=== PATIENT | male | born 1945 | race Caucasian/White ===

== ENCOUNTER 2019-12-24 08:50 | Outpatient (CLI) | payer MEDICARE, OTHER, SELFPAY ==
[2019-12-24 09:24] VITALS: BMI 25.8
--- NOTE | 2019-12-24 09:24 | ECG_ITS ---
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 Interpretive Statements NAME OF STUDY: LEXISCAN SESTAMIBI STRESS TEST INDICATION: Dyspnea on Exertion RESULTS TO ALEJANDRA LEHMAN MD PROCEDURE: At the baseline, the EKG revealed normal sinus rhythm with a poor R wave progression. The baseline blood pressure was 137/71 mm Hg with a heart rate of 66 beats/min. Lexiscan was infused over a period of 20 seconds. A total of 0.4 milligrams of Lexiscan was infused. The stress phase was continued for a total of 5 minutes. Heart rate at the end of the stress phase was 98 with a blood pressure was not taken. The EKG at the peak infusion revealed no significant changes. Sestamibi was injected 20 seconds after the Lexiscan infusion. Blood pressure at the end of the recovery phase was 161/69 with a heart rate of 93 per minute. CONCLUSION: 1. No significant EKG changes with the LexiScan infusion 2. No LexiScan induced chest pain or cardiac arrhythmia 3. Normal blood pressure and heart rate response 4. Sestamibi/sestamibi perfusion scan pending; see separate report. Electronically Signed On 12-25-2019 8:57:48 CDT by Elba Broderick M.D. [id number]
--- NOTE | 2019-12-24 09:25 | NMCV_ITS ---
NM padmaja perf SPECT r/s* [id number] Heath Rayo Age: 74 Gender: M : 1945 Exam Date: 12/24/2019 09:25 Ordering Phys: Jeremie Mensah MD Technologist: MARCO ANTONIO Seay Exam Location: [facility] Indications: DYSPNEA ON EXERTION STRESS TEST Please see separate stress test report in [facility]any for full findings IMAGE PROTOCOL Rest/Stress 1 Lexiscan Day Radiopharmaceutical Dose (mCi) Administration Site Administered by Rest: Tc-99m 11.0 IV MARCO ANTONIO Seay Sestamibi Stress:Tc-99m 32.3 IV MARCO ANTONIO Penny Sestamibi Rest: 24-Dec-2019 60 Discovery 630 Stress: 24-Dec-2019 30 Discovery 630 0.4mg Lexiscan. Images obtained in supine and prone position. SPECT RESULTS Technical Quality: Excellent Raw Data Analysis: Normal Image Corrections: No attenuation or motion correction applied Summed Stress Score: 2 Summed Rest Score: 0 Summed Difference Score: 2 PERFUSION FINDINGS Small area of decreased density was noted in the mid inferior wall region. Significant reversibility was noted in this region. FUNCTIONAL RESULTS (calculated via Gated SPECT) Stress Image LV EF (%): 57 Stress EDV (mL):104 TID: 1.22 Stress ESV (mL):45 FUNCTIONAL FINDINGS: Segmental wall motion analysis revealing no gross wall motion abnormalities. IMPRESSIONS 1. Myocardial perfusion imaging revealing a small area of reversible defect in the mid inferior wall region, suggestive of ischemia in the distribution of the right coronary artery. Elevated transient ischemic dilatation ratio also may suggest endocardial ischemia. 2. Normal LV ejection fraction 57%. 3. LV wall motion analysis revealing no gross wall motion normalities. 4. LV volume, upper limit of normal. No similar previous studies are available for comparison. Dr Elba Broderick MD FACC (Electronically Signed) Final Date: 24 December 2019 15:51 S
--- NOTE | 2019-12-24 11:08 | SUR.PREOP ---
Patient reports no pain or discomfort prior to the start of the procedure.
[2019-12-24] MEDS: regadenoson 0.4 Mg/5 ml Syringe IVP (11:09)
[2019-12-24 11:24] VITALS: BP 163/69; PULSE 93
== END 2019-12-24 08:51 | disposition home or self-care (01) ==
LOC: CDL 08:53
PROVIDERS: PCP Family Medicine; Visit Provider Family Medicine
DX: R06.00 Dyspnea, unspecified (principal)
CPT/HCPCS: 78452; 93017; A9500; J2785

== ENCOUNTER 2020-01-23 09:39 | Outpatient (CLI) | payer MEDICARE, OTHER, SELFPAY ==
[2020-01-23 10:36] LABS: Basophils # 0.1 10^3/uL (0.0-0.1); Basophils % 1.1 %; Eosinophils # 0.3 10^3/uL (0.0-0.8); Eosinophils % 3.7 %; Hematocrit 34.2 % (42.0-52.0); Hemoglobin 9.7 g/dL (11.7-16.6); Lymphocytes % 24.5 %; Mean Corpuscular HGB Conc 28.4 g/dL (30.0-36.0); Mean Corpuscular Hemoglobin 21.7 pg (28.0-34.0); Mean Corpuscular Volume 76.5 fL (80-94); Mean Platelet Volume 8.4 fL (7.4-10.4); Monocytes # 1.1 10^3/uL (0.2-0.9); Monocytes % 13.8 %; Neutrophils # 4.67 10^3/uL (1.8-7.7); Neutrophils % 56.5 %; Nucleated Red Blood Cells % 0 %; Platelet Count 357 10^3/cmm (130-400); Red Blood Count 4.47 10^6/uL (4.1-5.3); Red Cell Distribution Width 15.8 % (12.1-15.1); White Blood Count 8.3 10^3/uL (4.0-10.0)
[2020-01-23 10:49] LABS: INR 1.01 (0.8-1.2)
[2020-01-23 11:02] LABS: Anion Gap 14.5 (5-19); Blood Urea Nitrogen 10 mg/dL (8-23); Calcium 9.4 mg/dL (8.5-10.5); Carbon Dioxide 21 mmol/L (22-29); Chloride 100 mmol/L (98-107); Glucose 102 mg/dL (65-115); Osmolality Calculated 271 mOsm/kg (285-295); Potassium 4.5 mmol/L (3.5-5.1); Sodium 131 mmol/L (136-145)
== END 2020-01-23 09:40 | disposition home or self-care (01) ==
LOC: RAD 09:48
PROVIDERS: Internal Medicine Cardiovascular Disease; PCP Family Medicine; Visit Provider Family Medicine
DX: Z01.812 Encounter for preprocedural laboratory examination (principal)
CPT/HCPCS: 80048; 85025; 85610; 87635

== ENCOUNTER 2020-01-26 07:19 | Day surgery (SDC) | payer MEDICARE, OTHER, SELFPAY ==
[2020-01-26] VITALS (11 sets, daily range): BP systolic 114–153; BP diastolic 65–86; PULSE 9–99; RESP 16–20; TEMP 36.3; O2SAT 97–100; BMI 27.1
--- NOTE | 2020-01-26 07:30 | XACV_ITS ---
Ht: 168 cm Wt: 76 kg BSA: 1.90 m2 Gender: Male : 1945 Any Known Allergies: Other Exam Priority: Routine Procedure(s): Procedure Description: Diagnostic procedure Procedure Description: Left Heart Catheterization Procedure Description: Left ventriculography Procedure Description: Coronary Angiography Diagnostic Findings * Left Main Coronary Artery: Moderate 60% stenosis, AALIYAH: 3 flow, FFR performed: ratio is 0.74. * pLAD: Moderate 50% stenosis, AALIYAH: 3 flow. * mCIRC: Moderate 50% stenosis, AALIYAH: 3 flow. * mRCA to dRCA: Moderate 50% stenosis, AALIYAH: 3 flow. * Coronary angiography shows right dominance. Conclusions 1. There is moderate coronary artery disease with four vessel disease. 2. All gudino are normal. 3. Normal left ventricular systolic function. Ejection fraction of 60%. 4. Indication for 5. left heart cath 6. : 7. Abnormal 8. stress test. No gradient across the aortic valve noted.. 9. FFR: After equalizing the distal and proximal pressure of FFR wire proximal to the left main distal lesion, distal left main lesion was crossed with FFR wire into distal LAD. I FFR was noted to be 0.78 which was significant however we started with IV adenosine at rate of 140 mcg/min was started. Patient complains of shortness of breath and chest pressure, at then end of two minutes FFR was recorded as 0.74, which is significant . Recommendations * 1-Return to CSU for close monitoring and routine PCI care 2-Continue optimizing medical treatment 3-Statin with LDL goal of 70 mg/dl, aspirin 81 mg p.o. daily for life long 4-CT surgery consults for CABG 5-Follow up with Dr. Butler in four weeks and establish care with primary care physician. Diagnostic RX Recommendation: CABG Ventriculography Ejection Fraction: 60.0 % Left Ventriculography Findings: * Normal left ventricle function estimate ejection fraction 60%. Pressures Phase:Rest AO : 168 / 83 ( 99 ) @ 5:35:00 AM 146 / 117 ( 120 ) @ 5:45:00 AM 112 / 57 ( 80 ) @ 5:50:00 AM 127 / 62 ( 90 ) @ 6:10:00 AM 128 / 47 ( 83 ) @ 6:10:00 AM LV : 150 / -14 / @ 6:09:00 AM 125 / -15 / @ 6:10:00 AM 129 / -14 / @ 6:10:00 AM Valves Phase:DefaultPhase AV : 1.0 @ 12:23:35 PM AV Mean Gradient: 0.0 @ 12:23:35 PM 0.0 @ 12:23:35 PM Clinical Evaluation EBL: 5mL-10mL Procedural Details Procedure Consent Obtained. Pre-Procedure Time Out. Identified patient by full name and date of as verbalized by the patient/guarantor. Does the consent match the physician's order: Yes. Accurate & Complete Informed Consent: Yes. Inpatient/Outpatient History & Physical on Chart: Yes. If H&P is completed, is and addenduem needed: N/A; If yes, is the addendum complete: N/A. Visualize and Verify Site with Patient/Guarantor: N/A. Relevant Radiology Images available: Yes. Pre-op teaching completed and patient verbalized understanding. The risks, benefits, and alternatives of sedation and/or procedure were discussed by physician. The patient agrees to continue. Procedure started. Correct patient, site and procedure confirmed by cath team. PERRLA. 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 Lungs clear x 5 lobes. IV Site on Arrival: 20 gauge in the left forearm. IV Fluids: 0.9% NaCl at KVO. 0 mL infused prior to nitriles lab technician. Pre Procedural Pulses: bilateral dorsalis pedis was 3+. Pre Procedural Pulses: bilateral posterior tibial was 3+. Pre Procedural Pulses: bilateral radial was 3+. Oxygen started at 2liters/min via nasal canula. right groin was prepped with chloroprep then draped in the usual sterile fashion. right radial was prepped with chloroprep then draped in the usual sterile fashion. Physician notified. Baseline sample Acquired. HR: 72 BPM. Equipment: 6F - Radial. Cardiac Cath Pack. ACIST Manifold Kit Model BT 2000. Heparinized Saline (2 units/mL), 1000 mL bag. Physician arrived. Physician scrubbed in. Immediate Pre-Procedure Time Out. Correct Patient: Yes; Correct Procedure: Yes; Correct Site: Yes; Correct Patient Position: Yes; Correct Supplies: Yes; Dried Flammable Prep: Yes; Blood Products Available: No;. Lidocaine 1% infiltrated to the right radial. Arterial access obtained. A 5 guyanese Otis catheter in over wire. Wire out. Hand injection performed. Glidewire inserted. Multiple views taken of right coronary artery. Catheter out. 6 guyanese XB 3.5 guide catheter was inserted over the wire. Inventory is TR Glidewire Angled Stiff Shaft .035 260cm. Guide catheter out. 6 guyanese XB 3 guide catheter was inserted over the wire. Guide catheter out. A 5 guyanese JL4 catheter in over wire. Multiple views taken of left coronary artery. Catheter out. 6 guyanese JL 4 guide catheter was inserted over the wire. pressure wire inserted. FFR guidewire was advanced through the guide catheter to lesion in the LMCA. IFR 0.78. An FFR value of 0.74 was obtained for a lesion located at LMCA. pressure wire out. A 5 guyanese Angled Pig catheter in over wire. EDP Sample taken: LV 150/-15,12; HR: 98 BPM; SpO2: 93%. LV gram performed in العلي @ 10 mL/second for a total of 30 mL. EDP Sample taken: LV 125/-16,8; HR: 105 BPM; SpO2: 92%. Pullback taken: LV 129/-14,9; AO 127/62(90); Mean: 0mmHg, Peak to Peak: 1mmHg, SEP: 8sec/min; HR: 88 BPM; SpO2: 94%. Catheter out. A TR Band was successful obtaining hemostatsis at the Right Radial artery insertion site. TR band placed. Hemostasis obtained. Post Procedure: Pulses reassessed and unchanged. PERRLA. 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 No VTE prophylaxis required. Medication's Wasted: Nitro = 49.8 mg. Medication's Wasted: Lidocaine 1% = 10 mL. Medication's Wasted: Heparin = 1000 units. Medication's Wasted: Other = adenosine 69 mg. Medication's Wasted: Other = fentanyl 50 mcg. Total IV fluids: 75 mL. Fluoro: 16:09. Contrast type used: Omnipaque 300 mgI/mL, 500 mL bottle. [id number]. Complications: none. Estimated blood loss: 5mL-10mL. Procedure completed. Vital chart was stopped. Patient transferred by wheelchair to CPRU. Post-op diagnosis: LMCA severe stenosis. [facility] Clinical Fraility Score: 4: Vulnerable. Etcher Enameling Indications: Worsening Angina. Chest Pain Symptom Assessment: Typical Angina Symptoms. Cardiovascular Instability: No. Access Site Site: Right Radial artery Sheath Size: 6 Fr Hemostasis Method: TR Band Hemostasis Success: Successful Procedure Medications Start: 11:14 AM Stop: 11:14 AM Medication: Versed Amount: 1 mg Route: I.V. Start: 11:14 AM Stop: 11:14 AM Medication: Fentanyl Amount: 50 mcg Start: 11:28 AM Stop: 11:28 AM Medication: Nitrogylcerin Amount: 200 mcg Route: I.A. Start: 11:33 AM Stop: 11:33 AM Medication: Versed Amount: 1 mg Route: I.V. Start: 11:44 AM Stop: 11:44 AM Medication: Versed Amount: 1 mg Route: I.V. Start: 11:49 AM Stop: 11:49 AM Medication: Heparin Amount: 5000 units Route: I.V. Start: 12:03 PM Stop: 12:03 PM Medication: Versed Amount: 1 mg Route: I.V. I, the attending physician, have reviewed and verified all procedure medications. Yes, all medications given per verbal order History/Risk Factors Hypertension: Yes Report Signatures Finalized by Lillian Butler MD on 02/05/2020 07:24 PM
[2020-01-26] MEDS: diphenhydrAMINE 50 mg Capsule PO (09:31)
--- NOTE | 2020-01-26 11:01 | W.PM.OPSUD ---
Surgery/Procedure H&P Update DATE OF PROCEDURE: January 26, 2020 DATE H&P PERFORMED: 12/30/19 H&P UPDATE INFORMATION: I have reviewed H&P completed within last 30 days, I have examined patient prior to procedure and No changes to prior documentation PREOP DIAGNOSIS: Chest pain despite of maximal medical therapy, abnormal stress test, PLANNED PROCEDURE: Operation Date: 01/26/20 08:30 Proposed Procedures p Cardiac Catheterization 16938/I20.0(Left) - Lillian Butler MD PATIENT REASSESSED PRIOR TO SEDATION, WITH NO CHANGE NOTED: Yes PHYSICAL EXAM: alert, oriented x 3 and clear to auscultation bilaterally AIRWAY EVAL/ANESTHESIA PLAN: ASA II, Risks, benefits & alternatives of sedation and/or procedure discussed and Patient agrees to continue as planned
--- NOTE | 2020-01-26 12:20 | PC.NURSE ---
RECOVERY PT RECEIVED FROM [facility] A&O X3. RIGHT WRIST WITH TR BAND IN PLACE WITH PALPABLE PULSE FELT DISTAL TO BAND. NO BRUISING OR BLOOD LEAKING AROUND BAND. PT PUT ON VITALS MACHINE FOR Q15 VITALS CHECK. PT COMPLAINING OF NO PAIN JUST DISCOMFORT AT SITE. PT EDUCATED ON RESTRICTIONS TO RIGHT WRIST. CARDIAC DIET ORDERED.
--- NOTE | 2020-01-26 15:50 | PC.NURSE ---
follow up appointment Tara Lovelace 2 weeks appointment set for 02/09/2020. Called patients with appt.
--- NOTE | 2020-02-05 19:31 | P.SS_ITS ---
Short Stay Summary Providers Date of Admit/Discharge: 02/05/20 Attending Provider: Lillian Butler MD Primary Care Provider: Jeremie Mensah MD HPI History of Present Illness Heath Rayo is a 75 year old male past medical history significant for hypertension hyperlipidemia for worsening of shortness of breath chest pain and increased transient ischemic dilatation on stress test underwent left heart catheter today. He was noted to have significant distal 60 to 70% left main, proximal 50 to 60% LAD and nonobstructive 50% mid RCA. Since my IVUS machine was not working we performed IFR for the distal left main with the wire in the distal LAD which turns out to be significant at 0.78, I also performed FFR which turned out to be 0.74 significant at the end of 2 minutes. Left ventricle ejection fraction was normal. No gradient across the aortic valve noted. Patient is being discharged home. He will be referred for bypass surgery. He is a [facility] patient and requires VA authorization would like to perform surgery in [place]. I will refer him to the [facility]. Patient has been advised with worsening of chest pain or shortness of breath he should take nitroglycerin if chest pain does not relieved with 3 nitroglycerin at 5 minutes interval he should come to ER after dialing 911. Home Meds/Allergies Home Medications and Allergies Home Medications Medication Instructions Recorded Confirmed Type alprazolam 0.25 mg tablet 0.125 mg PO DAILY tab 12/30/19 02/03/20 History aspirin 81 mg tablet,delayed 81 mg PO DAILY 12/30/19 02/03/20 History release cholecalciferol (vitamin D3) 25 3,000 unit PO DAILY cap 12/30/19 02/03/20 History mcg (1,000 unit) capsule dicyclomine 20 mg tablet 10 mg PO DAILY tab 12/30/19 02/03/20 History guaifenesin 1,200 mg tablet, 1,200 mg PO BID PRN 12/30/19 02/03/20 History extended release 12 hr ibuprofen 400 mg tablet 400 mg PO Q8H PRN 12/30/19 02/03/20 History lisinopril 20 mg tablet 20 mg PO DAILY 12/30/19 02/03/20 History nitroglycerin 0.4 mg sublingual 0.4 mg SUBLINGUAL Q5M PRN 12/30/19 02/03/20 History tablet omeprazole 20 mg capsule,delayed 20 mg PO DAILY 12/30/19 02/03/20 History release phenylephrine HCl 10 mg tablet 10 mg PO Q6H PRN 12/30/19 02/03/20 History Allergies Allergy/AdvReac Type Severity Reaction Status Date / Time levofloxacin [From Levaquin] Allergy ALGY-Rash Verified 02/03/20 14:18 pravastatin AdvReac Intolerance Verified 02/03/20 14:18 PFSH Acute PFSH: Medical History Essential hypertension GERD (gastroesophageal reflux disease) Hypertension IBS (irritable bowel syndrome) Osteoarthritis Surgical History S/P appendectomy (~2013) S/P partial colectomy (~2013) S/P rotator cuff repair (~2013) Right Family History Father Cancer Mother Myocardial infarction Stroke Social History Smoking and tobacco status: current every day smoker Vitals/I&O/Wt Last Vital Signs Temp 97.3 F L 01/26/20 08:24 Pulse 90 01/26/20 15:00 Resp 20 H 01/26/20 15:00 BP 114/65 01/26/20 15:00 Pulse Ox 99 01/26/20 15:00 Physical Exam Narrative: EXAM NARRATIVE: GENERAL: Patient is alert, awake and oriented x3. NECK: No jugular vein distension. HEENT: No cyanosis. No icterus. No pallor. HEART: Regular S1 and S2. No murmur, rub or gallop. LUNGS: Clear to auscultate bilaterally. ABDOMEN: Soft, nontender and nondistended. Positive bowel sounds. No guarding, rebound or tenderness. CENTRAL NERVOUS SYSTEM: Grossly nonfocal. EXTREMITIES: Lower extremities without edema bilaterally. Const: COMMON NORMALS: alert Resp: COMMON NORMALS: clear to auscultation bilaterally AUSCULTATION: clear to auscultation bilaterally Neuro: SENSORIUM/ORIENTATION: Yes alert Hospital Course Hospital Course As above Discharge Summary As above SSS Data Data Completed and Pending: Completed Studies During Hospitalization Category Date Time Status TRAINING EXECUTIVE request for service Routin e Exams 01/26/20 07:30 Completed Discharge Plan Discharge Patient Disposition: Home Condition: Stable Prescriptions: Continued nitroglycerin [Nitrostat] 0.4 mg tablet, sublingual 0.4 mg SUBLINGUAL Q5M PRN (Reason: Chest Pain) RF: 0 ibuprofen 400 mg tablet 400 mg PO Q8H PRN (Reason: Pain) RF: 0 aspirin [Adult Low Dose Aspirin] 81 mg tablet,delayed release (DR/EC) 81 mg PO DAILY RF: 0 omeprazole 20 mg capsule,delayed release(DR/EC) 20 mg PO DAILY RF: 0 alprazolam 0.25 mg tablet 0.125 mg PO DAILY RF: 0 lisinopril 20 mg tablet 20 mg PO DAILY RF: 0 dicyclomine 20 mg tablet 10 mg PO DAILY RF: 0 Mucinex 1,200 mg tablet extended release 12hr 1,200 mg PO BID PRN (Reason: Congestion) RF: 0 Sudafed PE 10 mg tablet 10 mg PO Q6H PRN (Reason: Congestion) RF: 0 cholecalciferol (vitamin D3) 25 mcg (1,000 unit) capsule 3,000 unit PO DAILY RF: 0 isosorbide mononitrate 30 mg tablet extended release 24 hr 15 mg PO BID Qty: 90 RF: 3 No Action Chantix Starting Month Box 0.5 mg (11)- 1 mg (42) tablets,dose pack See Rx Instructions PO PER PKG DIR Qty: 53 RF: 2 Discharge Orders: Discharge Order (Routine); Ordered 01/26/20 Ordered By: Lillian Butler Referrals: Lillian Butler MD [Physician] - ([facility] surgeon has been notified and will contact patient after Thanksgiving regarding CABG consult. ) Discharge Diet: Cardiac Discharge Activity: Increase activity as tolerated Patient Instructions: Left Heart Catheterization (DC) Activity Restrictions/Additional Instructions: Continue all the medicine. We will refer you to [facility] as per your request. Dr. Hooker cardiothoracic surgeon office will contact you for an appointment. If you do not hear from [facility] over the next [address] Howard's office. Follow-up with Tara Lovelace cardiology nurse practitioner in 2 weeks. Follow-up with Dr. Butler in 3 months Attestations Medical Necessity Statement*: Patient require continuation of hospitalization for above defined care. Time Spent in Patient Care*: greater than 30 min Specific Discharge Activities: Specific discharge activities: educating patient and educating and/or supporting family/caregiver Quality Metrics Clinical Quality Measures: During this hospital stay, did patient experience: None Coding Level of Care Code Established Pt Acute Wildlife Veterinarian for Chg Fwd Patient Type Established History Detailed Exam Detailed Medical Decision Making Moderate Complexity
== END 2020-01-26 15:32 | disposition home or self-care (01) ==
PROVIDERS: PCP Family Medicine; Visit Provider Internal Medicine Cardiovascular Disease
DX: I25.110 Atherosclerotic heart disease of native coronary artery with unstable angina pectoris (principal); R07.9 Chest pain, unspecified; R94.39 Abnormal result of other cardiovascular function study; I10 Essential (primary) hypertension; E78.5 Hyperlipidemia, unspecified; Z79.82 Long term (current) use of aspirin; K21.9 Gastro-esophageal reflux disease without esophagitis; M19.90 Unspecified osteoarthritis, unspecified site; F17.210 Nicotine dependence, cigarettes, uncomplicated
CPT/HCPCS: 12345; 36415; 93452; 93571; C1769; C1887; C1894; J0153; J1644; J2250; J3010; J3490; J7030; Q0163; Q9967

== ENCOUNTER → 2020-02-03 15:05 | Outpatient (BNVA) | payer OTHER, MEDICARE, SELFPAY | PROVIDERS: PCP Family Medicine; Visit Provider Nurse Practitioner Family | DX: I25.10 Atherosclerotic heart disease of native coronary artery without angina pectoris (principal); Z71.6 Tobacco abuse counseling | CPT/HCPCS: 80048 ==

== ENCOUNTER 2020-03-23 13:20 | Outpatient (RCR) | payer OTHER, MEDICARE, SELFPAY | END 2020-04-04 23:59 | disposition home or self-care (01) | LOC: CR 13:20 | PROVIDERS: PCP Family Medicine; Referring Provider Internal Medicine Cardiovascular Disease; Visit Provider Internal Medicine Cardiovascular Disease | DX: Z95.1 Presence of aortocoronary bypass graft (principal) | CPT/HCPCS: 93798 ==

== ENCOUNTER 2020-04-05 10:35 | Outpatient (CLI) | payer OTHER, SELFPAY ==
--- NOTE | 2020-04-05 | CT_ITS ---
WS: [id number] CTA NECK TECHNIQUE: Contrast enhanced CTA of the neck with coronal and sagittal reformatted images and maximum intensity projection (MIP) images. NASCET criteria utilized. CLINICAL INFORMATION: I65.23 - Occlusion and stenosis of bilateral carotid arteries DLP: 916.[address] scans at [facility] use at least one of these dose optimization techniques: automat ed exposure control; mA and/or kV adjustment per patient size (includes targeted exams where dose is matched to clinical indication); or iterative reconstruction. FINDINGS: RIGHT: Right common carotid artery is patent. Moderate calcified atheromatous disease right carotid b ulb extending into the ICA. Right ICA is patent to the skull base. Less than 50% right ICA stenosis. LEFT: Left common carotid artery is patent. Left proximal ICA stent is occluded. ECA is patent. Left ICA remains occluded to the skull base. Flow is visualized in the petrous and cavernous intracranial segments. Both vertebral arteries are patent. Basilar artery is patent. Mastoid air cells are well aerated. Mild mucosal thickening in the paranasal sinuses. Enlarged right cervical lymph nodes at the angle of the mandible the largest measuring 2.[address]/CT angio neck 44171 IMPRESSION: 1. Right ICA stenosis measuring 30%. 2. Left ICA stent is occluded. Left ICA remains occluded to the skull base. 3. Both vertebral arteries are patent. 4. MRI chest right cervical lymph nodes at the angle of the mandible the large st measuring 2.2 x 1.3 CM. This is indeterminant and recommend follow-up with c ontrast-enhanced neck CT. Malignancy is not excluded. Recommend correlation wit h clinical history.
--- NOTE | 2020-04-05 11:50 | XR_ITS ---
WS: [id number] PROCEDURE: XR chest 2V* 66150 CLINICAL INFORMATION: Z95.1 - Presence of aortocoronary bypass graft COMPARISON: None. FINDINGS: Heart: Normal cardiac silhouette. Sternotomy. Aortic calcification. Lungs: Moderate chronic emphysematous changes. No acute pulmonary infiltrates. Bones: Normal visualized bony structures. XR/XR chest 2V* 56298 IMPRESSION: No acute chest findings.
[2020-04-05 12:02] LABS: Blood Urea Nitrogen 8 mg/dL (8-23)
== END 2020-04-05 10:36 | disposition home or self-care (01) ==
LOC: RADWPI 10:39
PROVIDERS: PCP Family Medicine; Visit Provider Internal Medicine Cardiovascular Disease
DX: I65.23 Occlusion and stenosis of bilateral carotid arteries (principal); Z95.1 Presence of aortocoronary bypass graft; R06.02 Shortness of breath
CPT/HCPCS: 70498; 71046; 82565; 84520; Q9967

== ENCOUNTER 2020-04-27 09:46 | Outpatient (CLI) | payer OTHER, MEDICARE, SELFPAY ==
--- NOTE | 2020-04-27 10:15 | USCV_ITS ---
Girma Heath Age: 75 Gender: M : 1945 Exam Date: 04/27/2020 10:06 Ordering Phys: Henri Barone MD (Andy) ([email or web address] [place]) Technologist: Shruthi Ronquillo [place] [facility] [place]ication: KNOWN LT ICA OCCLUSION Risk Factors: Previous Vascular Surgery: Right Brachial BP: / Left Brachial BP: / Right Left Velocity (cm/s) Spectral Plaque Velocity (cm/s) Spectral Plaque Syst/Diast Broadening Syst/Diast Broadening 147.60/14.90 Prox CCA 82.10 / 8.40 113.60/17.10 Mid CCA 66.00 / 14.00 95.70/ 22.20 Distal CCA 52.00 / 10.10 150.00/19.40 Prox ICA / 124.60/30.60 Mid ICA / 97.60/ 28.60 Distal ICA / 177.10 ECA 139.90 1.02 ICA/CCA Antegrade Vertebral Antegrade 45.80/ 15.50 cm/s 60.40/ 18.00 cm/s Tri Subclavian Tri 140.3 164.3 0 0 CONCLUSIONS Right ICA stenosis 50-69%. Moderate calcified atheromatous plaque right carotid bulb/ICA. No flow seen in the left ICA which appears occluded.. This could be futher evaluated with CTA. Left CCA is patent. normal antegrade Doppler flow noted in the right vertebral artery. Normal antegrade Doppler flow noted in the left vertebral artery. Mason Hdz MD (Electronically Signed) Final Date: 27 April 2020 11:56 S
== END 2020-04-27 09:47 | disposition home or self-care (01) ==
LOC: US 09:50
PROVIDERS: PCP Family Medicine; Visit Provider Thoracic Surgery (Cardiothoracic Vascular Surgery)
DX: I65.23 Occlusion and stenosis of bilateral carotid arteries (principal)
CPT/HCPCS: 93880

== ENCOUNTER 2020-05-11 11:33 | Outpatient (RCR) | payer OTHER, SELFPAY | END 2020-06-02 23:59 | disposition home or self-care (01) | LOC: CR 11:33 | PROVIDERS: PCP Family Medicine; Referring Provider Internal Medicine Cardiovascular Disease; Visit Provider Internal Medicine Cardiovascular Disease | DX: Z95.1 Presence of aortocoronary bypass graft (principal) | CPT/HCPCS: 93798 ==

== ENCOUNTER → 2020-07-30 10:15 | Outpatient (BNVA) | payer OTHER, SELFPAY | PROVIDERS: PCP Family Medicine; Visit Provider Surgery | DX: Z20.822 Contact with and (suspected) exposure to COVID-19 (principal) | CPT/HCPCS: 87635 ==

== ENCOUNTER 2020-08-04 08:21 | Day surgery (SDC) | payer OTHER, SELFPAY ==
[2020-08-03 09:44] VITALS: BMI 25.0
--- NOTE | 2020-08-04 08:44 | ANES.PREANE2 ---
Pre-Anesthetic Assessment Pre-Anesthetic Assessment: Height/Weight: Height 1.7 m Weight 72.575 kg Preop Diagnosis: Chest pain despite of maximal medical therapy, abnormal stress test, Proposed Procedure: Operation Date: 08/04/20 10:00 Proposed Procedures p EGD 03292 D64.9(Not Applicable) - Zachary Chawla MD s Colonoscopy 06545 D64.9(Not Applicable) - Zachary Chawla MD Was Beta John taken within 24 hours: Yes Was Clonidine taken within 24 hours: N/A Social: Social History: No alcohol and No tobacco Exam: Pre-Anes Outpt Exam: alert, oriented x 3, clear to auscultation bilaterally and regular rate & rhythm Airway: Submandibular: WNL Cervical ROM: WNL MP: 2 Dentition: False (uppers) CV/HEM: CV/HEM: Anemia, CAD (s/p CABG), HTN and PVD Anesthetic Plan: ASA status: 3 Anesthesia: MAC Risk of > 500 ml blood loss (7ml/kg in children): No PFSH Anesthesia PFSH: Medical History Anemia Carotid artery disease Essential hypertension GERD (gastroesophageal reflux disease) Hyperlipidemia associated with type 2 diabetes mellitus Hypertension IBS (irritable bowel syndrome) Osteoarthritis Surgical History S/P appendectomy (~2013) S/P partial colectomy (~2013) S/P rotator cuff repair (~2013) Right Status post aorto-coronary artery bypass graft Family History Father Cancer Mother Myocardial infarction Stroke Social History Smoking and tobacco status: former smoker Data Anesthesia Cardiac Studies: No Data to Display
[2020-08-04 09:01] VITALS: BP 126/75; PULSE 60; RESP 16; O2SAT 98
[2020-08-04] MEDS: sodium chloride 0.9% 1,000 ML 30 ML IV (09:23)
--- NOTE | 2020-08-04 09:45 | P.HP_ITS ---
Same Day Surgery H&P Indication for Procedure/HPI DATE OF PROCEDURE: August 04, 2020 CHIEF COMPLAINT/INDICATIONFOR SURGICAL PROCEDURE: Having anemia PREOP DIAGNOSIS: Iron deficiency anemia PLANNED PROCEDRUE: Operation Date: 08/04/20 10:00 Proposed Procedures p EGD 30962 D64.9(Not Applicable) - Zachary Chawla MD s Colonoscopy 18590 D64.9(Not Applicable) - Zachary Chawla MD This is a pleasant 75 years old gentleman presents to my practice with history of iron deficiency anemia and has been on iron therapy that was started. P laverne had open heart surgery last February 2020 at [facility]. He denies bleeding per rectum or nonintentional weight loss and he does not have history of colon cancer. Back in 2006 he had partial colectomy for complicated diverticulitis and no available data with specifics at this point. Patient has been on chronic anticoagulation in the form of aspirin 81 mg p.o. daily And also has been on pantoprazole 40 mg p.o. daily for acid reflux. Patient is referred to me because of concern of being having anemia for potential intervention in the form of endoscopies. Interim history 08/04/2020 Patient comes today for diagnostic EGD and colonoscopy ROS All systems have been reviewed negative except as per the above or per problem list. Medications/Allergies* Home Medications Medication Instructions Recorded Confirmed Type aspirin 81 mg tablet,delayed 81 mg PO DAILY 12/30/19 08/04/20 History release cholecalciferol (vitamin D3) 25 3,000 unit PO DAILY cap 12/30/19 08/04/20 History mcg (1,000 unit) capsule nitroglycerin 0.4 mg sublingual 0.4 mg SUBLINGUAL Q5M PRN 12/30/19 08/03/20 History tablet acetaminophen 325 mg tablet 325 mg PO QID PRN 03/16/20 08/04/20 History clopidogrel 75 mg tablet 75 mg PO DAILY 03/16/20 08/04/20 History furosemide 40 mg tablet 40 mg PO DAILY 03/16/20 08/04/20 History metoprolol succinate 25 mg 75 mg PO DAILY tab 03/16/20 08/04/20 History tablet,extended release 24 hr tamsulosin 0.4 mg capsule 0.4 mg PO DAILY 03/16/20 08/04/20 History ferrous sulfate 325 mg (65 mg 325 mg PO DAILY 06/18/20 08/04/20 History iron) tablet pantoprazole 40 mg tablet,delayed 40 mg PO DAILY 06/18/20 08/03/20 History release ascorbic acid (vitamin C) 1,000 mg 500 mg PO BID 06/28/20 08/03/20 History tablet zinc 50 mg tablet 50 mg PO DAILY 06/28/20 08/03/20 History Allergies/Adverse Reactions Allergy/AdvReac Type Severity Reaction Status Date / Time levofloxacin [From Levaquin] Allergy ALGY-Rash Verified 08/04/20 09:46 pravastatin AdvReac Intolerance Verified 08/04/20 09:46 Current Medications: Generic Name Dose Route Start Last Admin Trade Name Freq PRN Reason Stop Dose Admin Sodium Chloride 1,000 mls @ 30 mls/hr 08/04/20 09:00 08/04/20 09:23 Sodium Chloride 0.9% IV 08/05/20 08:59 30 mls/hr .Q24H CIERA Administration Pertinent History/Comorbid Conditions* Medical History (Updated 06/28/20 @ 13:03 by Zachary Chawla MD) Anemia Carotid artery disease Essential hypertension GERD (gastroesophageal reflux disease) Hyperlipidemia associated with type 2 diabetes mellitus Hypertension IBS (irritable bowel syndrome) Osteoarthritis Surgical History (Updated 03/20/20 @ 16:30 by Lillian Butler MD) S/P appendectomy (~2013) S/P partial colectomy (~2013) S/P rotator cuff repair (~2013) Right Status post aorto-coronary artery bypass graft Family History (Updated 12/30/19 @ 09:51 by Jaimee Wilks LPN) Myocardial infarction Mother Cancer Father Stroke Mother Social History Smoking and tobacco status: former smoker Pertinent Exam Findings alert, oriented x 3, clear to auscultation bilaterally, regular rate & rhythm and procedure specific exam findings (Abdominal examination nontender nondistended soft) Pertinent Data PERTINENT DATA: Patient reports that he has some blood with hemorrhoids yesterday during the prep Recommendations Surgery/Procedure today (Diagnostic EGD and colonoscopy) Other Plans: Plan of care; After thorough history and physical examination and reviewing the chart, plan to perform a diagnostic esophagogastroduodenoscopy and diagnostic colonoscopy with possible biopsy and possible polypectomy. I discussed with the patient in detail the risks,benefits,alternatives and indications.The risk of aspiration, bleeding, soft tissue injury, perforation of the stomach/esophagus/colon and other potential concomitant complications were explained to the patient in details also the potential need for Thoracotomy and or Laproscoy/Laparotomy to repair any related complications including but not limited to colectomy and or Closotomy. The patient understood this well and did agree to proceed. Rationale was carefully and clearly discussed with the patient.Appropriate informed consent have been reviewed and signed Verbal and written Instructions were given to the patient for colonoscopy prep Coding Level of Care Code Acute Environmental Health Safety Engineer for Dagmar Medina
[2020-08-04 11:04] VITALS: BP 107/69; PULSE 75; RESP 16; TEMP 36.3; O2SAT 95
[2020-08-04 11:12] VITALS: BP 120/85; PULSE 77; RESP 18; TEMP 36.6; O2SAT 96
--- NOTE | 2020-08-04 12:49 | ANE.PACU2 ---
Inpatient post-anesthesia follow up: Airway intact: Yes Vital signs: Temperature 97.8 F Pulse Rate 77 Respiratory Rate 18 Blood Pressure 120/85 Pulse Oximetry 96 Oxygen Delivery Me thod Room Air Oxygen Flow Rate Fraction of Inspir ed Oxygen Hydration adequate: Yes Nausea and vomiting: No Pain level: 1 Mental status: Baseline
[2020-08-05 06:15] LABS: H. Pylori / CLO Test Negative
== END 2020-08-04 11:43 | disposition home or self-care (01) ==
PROVIDERS: PCP Family Medicine; Visit Provider Surgery
PROC: 0DJ08ZZ Inspection of Upper Intestinal Tract, Via Natural or Artificial Opening Endoscopic (ICD-10-PCS; CPT 43235; principal; 2020-08-04 10:00)
PROC: 0DJD8ZZ Inspection of Lower Intestinal Tract, Via Natural or Artificial Opening Endoscopic (ICD-10-PCS; CPT 45378; 2020-08-04 10:00)
DX: D50.9 Iron deficiency anemia, unspecified (principal); Z90.49 Acquired absence of other specified parts of digestive tract; Z79.01 Long term (current) use of anticoagulants; Z79.82 Long term (current) use of aspirin; I25.10 Atherosclerotic heart disease of native coronary artery without angina pectoris; I10 Essential (primary) hypertension; K21.9 Gastro-esophageal reflux disease without esophagitis; E78.5 Hyperlipidemia, unspecified; M19.90 Unspecified osteoarthritis, unspecified site; Z87.891 Personal history of nicotine dependence; Z95.1 Presence of aortocoronary bypass graft
CPT/HCPCS: 43239; 45378; 87077; 96360; 96361; J2704; J7030

== ENCOUNTER 2020-08-26 09:28 | Outpatient (CLI) | payer OTHER, SELFPAY ==
--- NOTE | 2020-08-26 09:53 | FL_ITS ---
WS: [id number] SMALL BOWEL EXAMINATION CLINICAL INFORMATION: D50.9 - Iron deficiency anemia, unspecified COMPARISON: None. FINDINGS: Prior history of distal colon resection due to reported diverticulitis. Initial abdomen radiograph: Normal bowel gas pattern. No abnormal calcification. Sternotomy. Osteopen ia. Contrast material: 50/50 thin barium sulfate suspension. Transit time: 30 Minutes (normal = 30 - 240 minutes) No small bowel stricture, dilatation, adhesion, or mass. The terminal ileum is normal. Distal colecto my. Ileocolonic junction within the right upper quadrant. No suspicious filling defects or obstructin g lesions. Normal stomach and duodenal emptying. FLUOROSCOPY TIME: 2.8 minutes FL/FL small bowel series* 56102 IMPRESSION: 1. Rapid small bowel transit time measuring 30 minutes at the upper end of the normal range. 2. Prior distal colectomy for diverticulitis. Ileocolonic junction of the righ t upper quadrant. 3. Small bowel is normal in appearance. No suspicious filling defects or obstr ucting lesions. 4. No other significant findings.
== END 2020-08-26 09:29 | disposition home or self-care (01) ==
LOC: RADWPI 09:30
PROVIDERS: PCP Family Medicine; Visit Provider Surgery
DX: D50.9 Iron deficiency anemia, unspecified (principal)
CPT/HCPCS: 74250

== ENCOUNTER 2020-11-15 08:31 | Outpatient (CLI) | payer OTHER, MEDICARE, SELFPAY ==
--- NOTE | 2020-11-15 08:40 | USCV_ITS ---
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 Technologist: Shruthi Ronquillo [place] [facility] [place]: CHRONIC ISCHEMIC HEART DZ BP: 127 / 67 HR: 50 Rhythm: Other Technical Quality: Adequate MEASUREMENTS (Male / Female) Normal Values 2D ECHO LV Diastolic Diameter PLAX 5.0 cm 4.2 - 5.9 / 3.9 - 5.3 cm LV Systolic Diameter PLAX 3.6 cm IVS Diastolic Thickness 1.0 cm 0.6 - 1.0 / 0.6 - 0.9 cm IVS Systolic Thickness 2.0 cm LVPW Diastolic Thickness 1.1 cm 0.6 - 1.0 / 0.6 - 0.9 cm LVPW Systolic Thickness 1.9 cm LVOT Diameter 2.0 cm LV Ejection Fraction 2D Teich 55.6 % LV Ejection Fraction MOD 2C 39.7 % LV Ejection Fraction 2C AL 39.5 % LA Diameter 3.1 cm LA Width 3.4 cm LA Height 3.2 cm RA Width 3.0 cm RA Height 4.2 cm Aorta at Sinotubular Diameter 2.8 cm M-MODE Aortic Annulus Diameter 3.1 cm LA Ao Ratio MM 1.0 MV E Point Septal Separation 0.7 cm DOPPLER AV Peak Velocity 105.0 cm/s LVOT Peak Velocity 75.0 cm/s AV Area Cont Eq vti 2.3 cm squared AV Area Cont Eq pk 2.3 cm squared MV Area PHT 4.6 cm squared MV E' Velocity 34.0 cm/s Mitral E to MV E' Ratio 6.9 Mitral E to LV E' Lateral Ratio 5.8 Mitral E to LV E' Septal Ratio 8.7 TR Peak Velocity 229.2 cm/s TR Peak Gradient 21.0 mmHg TR Mean Velocity 215.7 cm/s TR Mean Gradient 19.2 mmHg TR Velocity Time Integral 75.5 cm TV Peak E Velocity 48.0 cm/s Right Atrial Pressure 3.0 mmHg Pulmonary Artery Systolic Pressu 24.0 mmHg PV Peak Velocity 120.0 cm/s RV Acceleration Time 0.0 s RV Ejection Time 0.3 s RV AcT/ET 0.1 FINDINGS Left Ventricle Normal left ventricular cavity size. Normal left ventricular systolic function. No regional wall motion abnormalities. Left ventricular ejection fraction is estimated at 55 %. Grade I/IV diastolic dysfunction (abnormal relaxation filling pattern), normal to mildly elevated filling pressures. Right Ventricle The right ventricle is normal in size and function. Right Atrium The right atrium is normal in size. Left Atrium The left atrium is normal in size. Mitral Valve Structurally normal mitral valve without significant stenosis or prolapse. There is no mitral regurgitation. Aortic Valve Moderate aortic valve calcification. No aortic valve stenosis. No aortic valve regurgitation. Tricuspid Valve Structurally normal tricuspid valve without significant stenosis or regurgitation. Pulmonary artery systolic pressure is normal. Pulmonic Valve Structurally normal pulmonic valve without significant stenosis. There is no pulmonic regurgitation. Pericardium Normal pericardium without effusion. Aorta Normal ascending aorta dimension. CONCLUSIONS 1-Normal left ventricular cavity size. Normal left ventricular systolic function. No regional wall motion abnormalities. Left ventricular ejection fraction is estimated at 55 %. Grade I/IV diastolic dysfunction (abnormal relaxation filling pattern), normal to mildly elevated filling pressures. 2-No significant valve abnormalities. 3-There is no pericardial effusion. 4-Pulmonary artery systolic pressure is within normal limits. 5-Right atrial pressure is around 5 mm of mercury. 6-There are no prior echocardiogram studies to compare. Lillian Butler MD (Electronically Signed) Final Date: 15 November 2020 20:40 S
== END 2020-11-15 08:32 | disposition home or self-care (01) ==
PROVIDERS: PCP Family Medicine; Visit Provider Nurse Practitioner Family
DX: I25.9 Chronic ischemic heart disease, unspecified (principal)
CPT/HCPCS: 93306

== ENCOUNTER 2020-12-03 10:55 | Outpatient (CLI) | payer OTHER, MEDICARE, SELFPAY ==
--- NOTE | 2020-12-03 11:00 | USCV_ITS ---
Girma Heath Age: 75 Gender: M : 1945 Exam Date: 12/03/2020 11:07 Ordering Phys: Henri Barone MD (Andy) ([email or web address]) Technologist: Shruthi Ronquillo [place] [facility] [place]: KNOWN LEFT ICA OCCLUSION Risk Factors: Previous Vascular Surgery: Right Brachial BP: / Left Brachial BP: / Right Left Velocity (cm/s) Spectral Plaque Velocity (cm/s) Spectral Plaque Syst/Diast Broadening Syst/Diast Broadening 57.10/ 10.00 Prox CCA 77.50 / 11.20 74.90/ 15.70 Mid CCA 54.70 / 12.80 62.80/ 16.40 Distal CCA 41.40 / 5.90 102.20/24.30 Prox ICA / 92.00/ 19.30 Mid ICA / 72.60/ 24.40 Distal ICA / 130.60 ECA 94.80 1.37 ICA/CCA Antegrade Vertebral Antegrade 37.50/ 13.10 cm/s 56.30/ 25.00 cm/s Tri Subclavian Tri 122.1 83.30 0 FINDINGS Comparison:. 04/27/20 Chronic occlusion left ICA. Focal irregular plaque in the right carotid bifurcation with mild turbulence and stenosis. Mild elevation of velocity right ICA. Bilateral antegrade vertebral arteries. CONCLUSIONS Right ICA stenosis < 50%. Mild atherosclerotic plaque at the bifurcation. Complete, chronic occlusion left ICA. Dr. Serena Harris DO (Electronically Signed) Final Date: 03 December 2020 13:04 S
== END 2020-12-03 10:56 | disposition home or self-care (01) ==
LOC: US 10:58
PROVIDERS: PCP Family Medicine; Visit Provider Thoracic Surgery (Cardiothoracic Vascular Surgery)
DX: I65.23 Occlusion and stenosis of bilateral carotid arteries (principal)
CPT/HCPCS: 93880

== ENCOUNTER 2021-05-25 06:00 | Outpatient (RCR) | payer OTHER, SELFPAY | END 2021-06-02 23:59 | disposition home or self-care (01) | LOC: TPT 06:00 | PROVIDERS: PCP Family Medicine; Referring Provider Family Medicine; Visit Provider Family Medicine | DX: R26.9 Unspecified abnormalities of gait and mobility (principal) | CPT/HCPCS: 97110; 97163 ==

== ENCOUNTER 2021-06-03 06:00 | Outpatient (RCR) | payer OTHER, SELFPAY | END 2021-07-02 23:59 | disposition home or self-care (01) | LOC: TPT 06:00 | PROVIDERS: PCP Family Medicine; Referring Provider Family Medicine; Visit Provider Family Medicine | DX: R26.9 Unspecified abnormalities of gait and mobility (principal) | CPT/HCPCS: 97110; 97116 ==

== ENCOUNTER 2021-07-03 | Outpatient (RCR) | payer OTHER, SELFPAY | END 2021-07-19 23:59 | disposition home or self-care (01) | LOC: TPT | PROVIDERS: PCP Family Medicine; Referring Provider Family Medicine; Visit Provider Family Medicine | DX: R26.9 Unspecified abnormalities of gait and mobility (principal) | CPT/HCPCS: 97110; 97112 ==

== ENCOUNTER → 2021-07-26 11:19 | Outpatient (BNVA) | payer MEDICARE, OTHER, SELFPAY | PROVIDERS: PCP Family Medicine; Visit Provider Nurse Practitioner Family | DX: J06.9 Acute upper respiratory infection, unspecified (principal); Z13.9 Encounter for screening, unspecified; Z11.52 Encounter for screening for COVID-19; J32.9 Chronic sinusitis, unspecified | CPT/HCPCS: 87635 ==

== ENCOUNTER → 2021-08-03 11:57 | Outpatient (BNVA) | payer OTHER, SELFPAY | PROVIDERS: PCP Family Medicine; Visit Provider Internal Medicine Cardiovascular Disease | DX: I25.10 Atherosclerotic heart disease of native coronary artery without angina pectoris (principal); I10 Essential (primary) hypertension; I65.23 Occlusion and stenosis of bilateral carotid arteries; Z95.1 Presence of aortocoronary bypass graft; Z87.891 Personal history of nicotine dependence | CPT/HCPCS: 99213; 99214 ==

== ENCOUNTER 2022-01-13 12:42 | Outpatient (CLI) | payer OTHER, SELFPAY ==
--- NOTE | 2022-01-13 13:30 | USCV_ITS ---
Girma Heath Age: 76 Gender: M : 1945 Exam Date: 01/13/2022 13:20 Ordering Phys: Henri Barone MD (Andy) ([email or web address] [place]) Technologist: EFLIX Exam Location: [facility] [place] Indication: Bilateral Carotid Stenosis Risk Factors: Previous Vascular Surgery: Right Brachial BP: / Left Brachial BP: / Right Left Velocity (cm/s) Spectral Plaque Velocity (cm/s) Spectral Plaque Syst/Diast Broadening Syst/Diast Broadening 105.60/17.10 Prox CCA 55.60 / 9.10 63.80/ 15.80 Mid CCA 55.00 / 9.10 61.10/ 17.10 Distal CCA 39.90 / 10.90 109.20/24.30 Prox ICA / 124.60/33.10 Mid ICA / 122.40/30.90 Distal ICA / 117.10 ECA 82.30 1.18 ICA/CCA Vertebral 60.50/ 21.70 cm/s 76.10/ 27.20 cm/s Subclavian 120.3 139.3 0 0 FINDINGS Comparison:. 12/03/20. Diffuse right carotid scattered calcified plaque and intimal thickening extending through the bifurcation. No significant elevation of systolic or diastolic velocities. Chronic left ICA occlusion. Antegrade vertebral arteries. CONCLUSIONS Right ICA stenosis < 50%. No progression of stenosis. Complete occlusion left ICA. Dr. Serena Harris DO (Electronically Signed) Final Date: 13 January 2022 13:51 S
== END 2022-01-13 12:43 | disposition home or self-care (01) ==
LOC: RAD 12:43
PROVIDERS: PCP Family Medicine; Visit Provider Thoracic Surgery (Cardiothoracic Vascular Surgery)
DX: I65.23 Occlusion and stenosis of bilateral carotid arteries (principal)
CPT/HCPCS: 93880

== ENCOUNTER → 2022-01-18 14:57 | Outpatient (BNVA) | payer OTHER, SELFPAY | PROVIDERS: PCP Family Medicine; Visit Provider Thoracic Surgery (Cardiothoracic Vascular Surgery) | DX: I65.23 Occlusion and stenosis of bilateral carotid arteries (principal); Z87.891 Personal history of nicotine dependence; I10 Essential (primary) hypertension | CPT/HCPCS: 99212 ==

== ENCOUNTER → 2022-02-09 13:06 | Outpatient (BNVA) | payer OTHER, SELFPAY | PROVIDERS: PCP Family Medicine; Visit Provider Internal Medicine Cardiovascular Disease | DX: I65.23 Occlusion and stenosis of bilateral carotid arteries (principal); D50.9 Iron deficiency anemia, unspecified; E11.69 Type 2 diabetes mellitus with other specified complication; E78.5 Hyperlipidemia, unspecified; Z95.1 Presence of aortocoronary bypass graft; I10 Essential (primary) hypertension; I25.110 Atherosclerotic heart disease of native coronary artery with unstable angina pectoris; Z87.891 Personal history of nicotine dependence | CPT/HCPCS: 99213 ==

== ENCOUNTER → 2022-07-12 15:38 | Outpatient (BNVA) | payer MEDICARE, OTHER, SELFPAY | PROVIDERS: PCP Family Medicine; Visit Provider Family Medicine | DX: R05.9 Cough, unspecified (principal) | CPT/HCPCS: 87400 ==

== ENCOUNTER → 2022-08-17 10:39 | Outpatient (BNVA) | payer OTHER, SELFPAY | PROVIDERS: PCP Family Medicine; Visit Provider Internal Medicine Cardiovascular Disease | DX: I25.10 Atherosclerotic heart disease of native coronary artery without angina pectoris (principal); Z95.1 Presence of aortocoronary bypass graft; E11.69 Type 2 diabetes mellitus with other specified complication; E78.5 Hyperlipidemia, unspecified; I65.23 Occlusion and stenosis of bilateral carotid arteries; I10 Essential (primary) hypertension; Z87.891 Personal history of nicotine dependence | CPT/HCPCS: 99214 ==

== ENCOUNTER 2022-08-31 08:14 | Outpatient (CLI) | payer OTHER, SELFPAY ==
--- NOTE | 2022-08-31 08:45 | USCV_ITS ---
Girma Heath Age: 77 Gender: M : 1945 Exam Date: 08/31/2022 08:56 Ordering Phys: Henri Barone MD (Andy) ([email or web address] [place]) Technologist: Aly Walton Exam Location: [facility] [place] Indication: Bilat carotid stenosis Risk Factors: Previous Vascular Surgery: Right Brachial BP: / Left Brachial BP: / Right Left Velocity (cm/s) Spectral Plaque Velocity (cm/s) Spectral Plaque Syst/Diast Broadening Syst/Diast Broadening 88.20/ 15.40 Prox CCA 65.90 / 9.50 46.70/ 9.90 Mid CCA 51.60 / 8.10 55.20/ 14.50 Distal CCA 43.30 / 8.00 97.40/ 19.70 Prox ICA / 98.30/ 29.10 Mid ICA / 111.90/30.80 Distal ICA / 111.90 ECA 115.40 2.11 ICA/CCA Antegrade Vertebral Antegrade 53.00/ 20.50 cm/s 66.70/ 19.70 cm/s Bi Subclavian Bi 96.60 78.10 FINDINGS Comparison:. 01/13/22. Known occluded left ICA. No significant stenosis right ICA. Mild carotid atherosclerosis. Antegrade verebral arteries. CONCLUSIONS Right ICA stenosis < 50%. No interval change in stenosis since prior exam. Complete occlusion left ICA. Dr. Serena Harris DO (Electronically Signed) Final Date: 31 August 2022 12:10 S
== END 2022-08-31 08:15 | disposition home or self-care (01) ==
LOC: RAD 08:17
PROVIDERS: PCP Family Medicine; Visit Provider Thoracic Surgery (Cardiothoracic Vascular Surgery)
DX: I65.23 Occlusion and stenosis of bilateral carotid arteries (principal)
CPT/HCPCS: 93880

== ENCOUNTER → 2022-09-21 09:33 | Outpatient (BNVA) | payer OTHER, SELFPAY | PROVIDERS: PCP Family Medicine; Visit Provider Thoracic Surgery (Cardiothoracic Vascular Surgery) | DX: I65.23 Occlusion and stenosis of bilateral carotid arteries (principal); Z87.891 Personal history of nicotine dependence; I10 Essential (primary) hypertension | CPT/HCPCS: 99213 ==

== ENCOUNTER → 2023-02-08 10:53 | Outpatient (BNVA) | payer OTHER, SELFPAY | PROVIDERS: PCP Family Medicine; Visit Provider Internal Medicine Cardiovascular Disease | DX: I25.10 Atherosclerotic heart disease of native coronary artery without angina pectoris (principal); Z95.1 Presence of aortocoronary bypass graft; E11.69 Type 2 diabetes mellitus with other specified complication; E78.5 Hyperlipidemia, unspecified; I65.23 Occlusion and stenosis of bilateral carotid arteries; I10 Essential (primary) hypertension; Z87.891 Personal history of nicotine dependence | CPT/HCPCS: 99214 ==

== ENCOUNTER 2023-02-21 08:47 | Outpatient (CLI) | payer OTHER, SELFPAY ==
--- NOTE | 2023-02-21 09:30 | USCV_ITS ---
Girma Heath Age: 78 Gender: M : 1945 Exam Date: 02/21/2023 09:06 Ordering Phys: Henri Barone MD (Andy) ([email or web address] [place]) Technologist: [place] [facility] [place]ication: HX OF CCA STENOSIS Risk Factors: Previous Vascular Surgery: Right Brachial BP: / Left Brachial BP: / Right Left Velocity (cm/s) Spectral Plaque Velocity (cm/s) Spectral Plaque Syst/Diast Broadening Syst/Diast Broadening 78.30/ 18.70 Prox CCA 80.80 / 14.00 80.50/ 20.90 Mid CCA 79.20 / 9.30 72.80/ 18.70 Hetro Distal CCA 76.10 / 9.30 153.80/37.30 Hetro Prox ICA / Homo 144.50/38.80 Mid ICA / Homo 135.20/34.20 Distal ICA / Homo 172.50 ECA 180.20 1.91 ICA/CCA Antegrade Vertebral Antegrade 59.00/ 17.10 cm/s 90.10/ 31.10 cm/s Bi Subclavian Bi 82.30 125.8 0 FINDINGS Comparison 08/25 CONCLUSIONS Progressed Right ICA stenosis 50-69%. Moderate atheromatous plaque right carotid bulb/ICA. LEFT ICA occlusion unchanged. LEFT CCA is patent Normal antegrade Doppler flow noted in the right vertebral artery. Normal antegrade Doppler flow noted in the left vertebral artery. Mason Hdz MD (Electronically Signed) Final Date: 21 February 2023 10:25 S
== END 2023-02-21 08:48 | disposition home or self-care (01) ==
PROVIDERS: PCP Family Medicine; Visit Provider Thoracic Surgery (Cardiothoracic Vascular Surgery)
DX: I65.23 Occlusion and stenosis of bilateral carotid arteries (principal)
CPT/HCPCS: 93880

== ENCOUNTER → 2023-03-22 09:44 | Outpatient (BNVA) | payer OTHER, SELFPAY | PROVIDERS: PCP Family Medicine; Visit Provider Thoracic Surgery (Cardiothoracic Vascular Surgery) | DX: I65.23 Occlusion and stenosis of bilateral carotid arteries (principal); M25.561 Pain in right knee; Z87.891 Personal history of nicotine dependence; I10 Essential (primary) hypertension | CPT/HCPCS: 99213 ==

== ENCOUNTER 2023-05-16 06:00 | Outpatient (RCR) | payer OTHER, SELFPAY | END 2023-06-03 23:59 | disposition home or self-care (01) | LOC: TPT 06:00 | PROVIDERS: Visit Provider Family Medicine | DX: M25.561 Pain in right knee (principal) | CPT/HCPCS: 97110; 97162 ==

== ENCOUNTER 2023-06-04 06:00 | Outpatient (RCR) | payer OTHER, SELFPAY | END 2023-07-03 23:59 | disposition home or self-care (01) | LOC: TPT 06:00 | PROVIDERS: Visit Provider Family Medicine | DX: M25.561 Pain in right knee (principal) | CPT/HCPCS: 97110 ==

== ENCOUNTER 2023-07-04 06:00 | Outpatient (RCR) | payer OTHER, SELFPAY | END 2023-08-03 23:59 | disposition home or self-care (01) | LOC: TPT 06:00 | PROVIDERS: Visit Provider Family Medicine | DX: M25.561 Pain in right knee (principal) | CPT/HCPCS: 97110 ==

== ENCOUNTER → 2023-08-09 12:17 | Outpatient (BNVA) | payer OTHER, SELFPAY | PROVIDERS: Visit Provider Internal Medicine Cardiovascular Disease | DX: I10 Essential (primary) hypertension (principal); I25.10 Atherosclerotic heart disease of native coronary artery without angina pectoris; Z95.1 Presence of aortocoronary bypass graft; E11.69 Type 2 diabetes mellitus with other specified complication; E78.5 Hyperlipidemia, unspecified; I65.23 Occlusion and stenosis of bilateral carotid arteries; Z87.891 Personal history of nicotine dependence | CPT/HCPCS: 99214 ==

== ENCOUNTER → 2023-08-22 08:09 | Outpatient (CLI) | payer OTHER, SELFPAY ==
--- NOTE | 2023-08-22 09:00 | USCV_ITS ---
Girma Heath Age: 78 Gender: M : 1945 Exam Date: 08/22/2023 08:21 Ordering Phys: Henri Barone MD (Andy) ([email or web address] [place]) Technologist: USR [place] [facility] [place]ication: EVAL FOR STENOSIS. KNOWN LEFT ICA OCCLUSION Risk Factors: Previous Vascular Surgery: Right Brachial BP: / Left Brachial BP: / Right Left Velocity (cm/s) Spectral Plaque Velocity (cm/s) Spectral Plaque Syst/Diast Broadening Syst/Diast Broadening 148.80/23.20 Prox CCA 78.10 / 14.20 139.40/25.90 Mid CCA 74.50 / 14.20 92.30/ 16.30 Distal CCA 58.00 / 12.40 118.80/24.50 Prox ICA 0.00 / 0.00 103.10/26.70 Mid ICA 0.00 / 0.00 105.00/28.90 Distal ICA 0.00 / 0.00 166.80 ECA 106.20 1.30 ICA/CCA 0.00 Antegrade Vertebral Antegrade 49.70/ 16.20 cm/s 71.80/ 19.00 cm/s Tri Subclavian Tri 217.8 111.1 0 0 FINDINGS Comparison 02/24 CONCLUSIONS Right ICA stenosis <50%. Moderate atheromatous plaque right carotid bulb/ICA. Right ICA velocities decreased since prior Chronic Left ICA occlusion. Moderate atheromatous plaque left carotid bulb/ICA. Normal antegrade Doppler flow noted in the right vertebral artery. Normal antegrade Doppler flow noted in the left vertebral artery. Mason Hdz MD (Electronically Signed) Final Date: 22 August 2023 09:57 S
== END | disposition home or self-care (01) ==
LOC: RAD 08:09
PROVIDERS: Absent Provider Family Medicine; PCP Family Medicine; Visit Provider Thoracic Surgery (Cardiothoracic Vascular Surgery)
DX: I65.23 Occlusion and stenosis of bilateral carotid arteries (principal)
CPT/HCPCS: 93880

== ENCOUNTER → 2024-02-13 13:21 | Outpatient (BNVA) | payer OTHER, SELFPAY | PROVIDERS: PCP Family Medicine; Visit Provider Internal Medicine Cardiovascular Disease | DX: I65.23 Occlusion and stenosis of bilateral carotid arteries (principal); I10 Essential (primary) hypertension; E78.5 Hyperlipidemia, unspecified; Z87.891 Personal history of nicotine dependence | CPT/HCPCS: 99213 ==

== ENCOUNTER → 2024-09-16 15:01 | Outpatient (BNVA) | payer OTHER, SELFPAY | PROVIDERS: PCP Family Medicine; Visit Provider Internal Medicine Cardiovascular Disease | DX: I25.10 Atherosclerotic heart disease of native coronary artery without angina pectoris (principal); I65.29 Occlusion and stenosis of unspecified carotid artery; R07.9 Chest pain, unspecified; I10 Essential (primary) hypertension; E11.69 Type 2 diabetes mellitus with other specified complication; E78.5 Hyperlipidemia, unspecified; T78.40XA Allergy, unspecified, initial encounter; X58.XXXA Exposure to other specified factors, initial encounter; Z95.1 Presence of aortocoronary bypass graft; Z87.891 Personal history of nicotine dependence | CPT/HCPCS: 99214 ==

== ENCOUNTER 2024-09-26 08:30 | Outpatient (CLI) | payer OTHER, SELFPAY ==
--- NOTE | 2024-09-26 | ECG_ITS ---
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 The perfusion scan will be documented separately. DATA: Baseline heart rate was 73 beats per minute. Baseline blood pressure was 144/67 millimeters of mercury. Target heart rate was 143. Maximum heart rate achieved was 109. which was 76 % of the predicted target heart rate. Maximum blood pressure was 151/77 millimeters of mercury. The reason for ending the test was completion of the protocol. The patient did not experience any symptoms. ELECTROCARDIOGRAM: BASELINE: Sinus rhythm. Normal axis. Otherwise, no ST-T changes suggestive of ischemia noted. No arrhythmia noted. EXERCISE: After Lexiscan injection, no ST-T changes suggestive of ischemic noted. No arrhythmia noted. CONCLUSION: Please note due to baseline abnormality of the EKG specificity and sensitivity of the EKG portion of LexiScan MIBI stress test will be low 1. EKG not suggestive of ischemia 2. Lexiscan injection unremarkable. 3. Perfusion scan will be documented separately. Electronically Signed On 10-13-2024 17:58:24 CDT by LILLIAN BUTLER [email or web address]
[2024-09-26 08:49] VITALS: BMI 26.9
--- NOTE | 2024-09-26 08:51 | NMCV_ITS ---
NM padmaja perf SPECT r/s* [id number] Girma Heath Age: 79 Gender: M : 1945 Exam Date: 09/26/2024 09:33 Ordering Phys: Lillian Butler MD ([email or web address]) Technologist: MARCO ANTONIO Cheung Exam Location: [facility] Indications: cp STRESS TEST Please see separate stress test report in [facility] for full findings IMAGE PROTOCOL Rest/Stress 1 Lexiscan Day Radiopharmaceutical Dose (mCi) Administration Site Administered by Rest: Tc-99m 10.5 IV Kelly Penaloza, CATERING SALES MANAGER Sestamibi Stress:Tc-99m 32.7 IV Kelly Pérezgle, CATERING SALES MANAGER Sestamibi Rest: 26-Sep-2024 60 Discovery 630 Stress: 26-Sep-2024 30 Discovery 630 0.4mg Lexiscan. Images obtained in supine and prone position. SPECT RESULTS Technical Quality: Good Raw Data Analysis: Normal Image Corrections: No attenuation or motion correction applied Summed Stress Score: 4 Summed Rest Score: 1 Summed Difference Score: 3 PERFUSION FINDINGS There is medium size area of fixed perfusion defect noted in basal to distal inferior wall surrounded by small to medium size area of mild reversibility suggestive of medium size area of old VT surrounded by mild periinfact ischemia in the basal to distal inferior wall. FUNCTIONAL RESULTS (calculated via Gated SPECT) Stress Image LV EF (%): 71 Stress EDV (mL):91 TID: 0.96 Stress ESV (mL):26 FUNCTIONAL FINDINGS: There is basal to distal inferior wall hypokinesis. 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 Lillian Butler MD (Electronically Signed) Final Date: 27 September 2024 13:03 S
[2024-09-26 10:13] VITALS: BP 123/67; PULSE 78
== END 2024-09-26 08:31 | disposition home or self-care (01) ==
LOC: CDL 08:33
PROVIDERS: Family Provider Family Medicine; PCP Family Medicine; Visit Provider Internal Medicine Cardiovascular Disease
DX: R07.9 Chest pain, unspecified (principal); R93.1 Abnormal findings on diagnostic imaging of heart and coronary circulation
CPT/HCPCS: 36415; 78452; 93017; 96374; A9500; J2785

== ENCOUNTER 2025-02-16 08:16 | Outpatient (CLI) | payer OTHER, SELFPAY ==
--- NOTE | 2025-02-16 09:00 | USCV_ITS ---
Heath Raoy Age: 80 Gender: M : 1945 Exam Date: 02/16/2025 08:35 Ordering Phys: Lillian Butler MD ([email or web address]) Technologist: Exam Location: [facility] [place] Indication: CAROTID STENOSIS Risk Factors: Previous Vascular Surgery: Right Brachial BP: / Left Brachial BP: / Right Left Velocity (cm/s) Spectral Plaque Velocity (cm/s) Spectral Plaque Syst/Diast Broadening Syst/Diast Broadening 71.40/ 13.80 Prox CCA 53.70 / 7.40 67.10/ 12.90 Mid CCA 61.30 / 8.90 59.50/ 13.90 Distal CCA 44.30 / 7.30 70.90/ 14.40 Prox ICA 25.60 / 7.00 97.00/ 21.60 Mid ICA / 81.00/ 22.50 Distal ICA / 135.35 ECA 135.90 1.20 ICA/CCA 0.60 Antegrade Vertebral Antegrade 38.60/ 14.40 cm/s 54.80/ 22.40 cm/s Tri Subclavian Tri 84.10 73.10 FINDINGS comparison 08/26 CONCLUSIONS Right ICA stenosis <50%. Moderate atheromatous plaque right carotid bulb/ICA. Left ICA is occluded just distal to the origin unchanged since 2023 Normal antegrade Doppler flow noted in the right vertebral artery. Normal antegrade Doppler flow noted in the left vertebral artery. Mason Hdz MD (Electronically Signed) Final Date: 16 February 2025 09:50 S
== END 2025-02-16 08:17 | disposition home or self-care (01) ==
PROVIDERS: PCP Family Medicine; Visit Provider Internal Medicine Cardiovascular Disease
DX: I65.23 Occlusion and stenosis of bilateral carotid arteries (principal)
CPT/HCPCS: 93880